=== PATIENT | female | born 1985 | race Two or more races ===

== ENCOUNTER 2017-11-16 23:20 | Emergency (ER) | payer OTHER ==
[~2017-11-16] VITALS: Ht 160 cm; Wt 90.7 kg
--- NOTE | 2017-11-16 23:23 | Emergency Room Report ---
History of Present Illness General Chief Complaint: Medical Clearance Source: Patient Present Illness HPI Is a 32-year-old female with no past medical history. She presents with chief complaint of possible . She was brought in by police for medical clearance. She was under arrest today and said she is scheduled for her menstrual flow. There were mention that she is not . If she is to take her to [facility] for further workup. On arrival patient went to the bathroom and started her menstrual flow. Denies any other complaint. No trauma Allergies: Coded Allergies: No Known Allergies (Unverified , 11/16/17) Patient History Past Medical History: see triage record, old chart reviewed Past Surgical History: other Pertinent Family History: none Social History: Denies: smoking Last Menstrual Period: STARTED TODAY Now: No Immunizations: other Reviewed Nursing Documentation: PMH: Agreed, PSxH: Agreed Nursing Documentation-PMH Past Medical History: No Stated History Review of Systems Eye: Denies: eye pain, blurred vision ENT: Denies: ear pain, nose congestion, throat swelling Respiratory: Denies: cough, shortness of breath Cardiovascular: Denies: chest pain, palpitations Gastrointestinal: Denies: abdominal pain, diarrhea, nausea, vomiting Musculoskeletal: Denies: back pain, joint pain Skin: Denies: rash Neurological: Denies: headache, numbness Endocrine: Denies: increased thirst, increased urine Hematologic/Lymphatic: Denies: easy bruising All Other Systems: negative except mentioned in HPI Physical Exam Vital Signs Date Time Temp Pulse Resp B/P (MAP) Pulse Ox O2 Delivery O2 Flow Rate FiO2 11/16/17 23:17 98.6 62 12 130/94 100 Room Air vitals normal Sp02 EP Interpretation: reviewed, normal General Appearance: well appearing, no apparent distress, alert Head: normocephalic, atraumatic Eyes: bilateral eye PERRL, bilateral eye EOMI ENT: hearing grossly normal, normal pharynx Neck: full range of motion, supple, no meningismus Respiratory: chest non-tender, lungs clear, normal breath sounds Cardiovascular #1: regular rate, rhythm, no murmur Gastrointestinal: normal bowel sounds, non tender, no mass, no organomegaly, no bruit, non-distended Musculoskeletal: back normal, gait/station normal, normal range of motion Psychiatric: mood/affect normal Skin: warm/dry Medical Decision Making Diagnostic Impression: Primary Impression: Encounter for medical screening examination ER Course Patient is medically clear for booking. No other complaint. No trauma Last Vital Signs Date Time Temp Pulse Resp B/P (MAP) Pulse Ox O2 Delivery O2 Flow Rate FiO2 11/16/17 23:17 98.6 62 12 130/94 100 Room Air Status: unchanged Disposition: D/C TO LAW ENFORCEMENT IN [facility] Condition: Stable Additional Instructions: Followup with your doctor as needed in 7 days. Return if worse. JOANNE FUNG M.D. Nov 16, 2017 23:23
[2017-11-16 23:45] VITALS: BP 134/81
[2017-11-16 23:48] VITALS: BP 130/94
== END 2017-11-16 23:50 ==
LOC: EDBD 23:20 → EMR 23:50
DX: Z76.89 Persons encountering health services in other specified circumstances (principal)
CPT/HCPCS: 99283